=== PATIENT | male | born 1965 | race Caucasian/White ===

== ENCOUNTER 2024-12-19 21:56 | Inpatient (IN) | payer BC, SELFPAY ==
[2024-12-19] VITALS (7 sets, daily range): BP systolic 75–132; BP diastolic 46–87
--- NOTE | 2024-12-19 18:28 | ED.GENMED ---
History of Present Illness
General
Chief Complaint: Fainting/Passed Out
Source: patient and physician (Anesthesiology called from surgery center due to patient's heart rate being low after a vasovagal episode, urinary retention, unable to place catheter after left hip replacement surgery by Dr. Wong)
Exam Limitations: none
Time Seen by Provider: 12/19/24 18:22
Nursing documentation reviewed up to this point in time: agreed with
History of Present Illness
History of Present Illness:
59-year-old male with syncope episode, left total knee replacement, urinary retention.
Past History
Past History
ED Past Medical History: Hypercholesterolemia
ED Past Surgical History: Orthopedic (Left total hip replacement)
Social History
Tobacco: Non-smoker
Alcohol: None
Drug: None
Personal:
Living: with family
Review of Systems
Review of Systems
Allergies reviewed?: Yes
All Other Systems: Not applicable
Constitutional: Reports no symptoms
EENT: Reports no symptoms
Respiratory: Reports no symptoms
Cardiac: Reports syncope
ABD/GI: Reports no symptoms
: Reports difficulty voiding
Musculoskeletal: Reports no symptoms
Skin: Reports no symptoms
Neurological: Reports no symptoms
Endocrine: Reports no symptoms
Hematologic/Lymphatic: Reports no symptoms
Psychiatric: Reports no symptoms
Phy Exam
Physical Exam
Physical Exam:
Physical Exam
General: no apparent distress, not acutely ill
Neck: supple. no meningeal signs. normal posterior pharynx
Heart: s1/s2 regular rate and rhythm, no murmur. equal radial
pulses.
HEENT: Pupils equal round reactive to light, EOMI
Lungs: no acute respiratory distress. clear bilaterally
Abdomen: normal bowel sounds. not tender. no CVAT
Neuro: alert and oriented. no focal neurological deficits cranial nerves II through XII intact
Skin: no rash, dressing in place left hip
Psychiatric: well kept. interactive and cooperative
Extremities: no edema. no calf tenderness. negative homans. good distal pulses
Course
Orders/Labs/Results
Orders:
Orders
12/19/24 Breakfast
Regular
12/19/24 18:22
Bladder Scan- Treatment ONCE
EKG- Treatment ONCE
IV Insert/Care/Rem.- Treatment PRN
12/19/24 18:23
Electrocardiogram (*1) Urgent
12/19/24 18:51
Complete Blood Count/With Diff Urgent
Comprehensive Metabolic Panel Urgent
Magnesium Urgent
12/19/24 19:06
Cantu Placement- Treatment ONCE
Reason for insertion: Acute Retention
12/19/24 19:40
Calcium Gluconate 3,000 mg 0.9% Sodium Chloride 100 ml [Nss] 100 ml IV ONCE
Potassium Chloride 10% Elixir [KCl Elixir] 40 meq PO NOW STA
12/19/24 19:47
Add On- LAB Urgent
Tests Added?: magnesium, ionized calcium
12/19/24 20:06
Potassium Chloride [KCl] 40 meq 0.9% Sodium Chloride 250 ml [Nss] 250 ml IV NOW
12/19/24 20:23
Ionized Calcium Urgent
12/19/24 21:00
Calcium Gluconate 4,000 mg 0.9% Sodium Chloride 250 ml [Nss] 250 ml IV ONCE
12/19/24 21:24
Magnesium Sulfate 2 Gram/50 ml [Magnesium Sulfate] 2 gram in 50 ml IV NOW
12/19/24 21:46
Admit/Transfer Patient As Directed
Co-Sign Provider:
Level of Care: Inpatient admission
Assign to:: IMU- Intermediate Care
Physician / Group: Sidney
Diagnosis: Syncope, Hypokalemia, Hypocalcemia
Reason for Hospitalization: Syncope, Hypokalemia, Hypocalcemia
Expected length of stay greater than two midnights?: Yes
ELOS- Estimated Length of Stay in days: 2
I certify the patient meets the requirements for IP care: Yes
PRN Pain Medication Management As Directed
May give lesser potent ordered pain med per pt: Yes
preference::
Protocol:: Medication orders for pain may be administered in a
manner that supports deferring to patient preference
when the pt is:
- Requesting an ordered lesser potent pain medication.
Least to most potent pain medications are defined
as: acetaminophen < NSAID < tramadol < opioids
(morphine, oxycodone, hydromorphone).
- Requesting a lesser dose of the same medication IF
ORDERED.
- Requesting a less intrusive route of administration
if both routes are prescribed by the provider (PO <
IV).
12/19/24 21:48
Code Status As Directed
Resuscitation Status: Full Code
12/19/24 22:51
Acetaminophen [Tylenol] 1,000 mg PO TIDPRN PRN
Docusate Sodium [Colace] 100 mg PO BIDPRN PRN
Gabapentin [Neurontin] 300 mg PO HS
Lactated Ringers [Lr] 1,000 ml IV 125 mls/hr
Ondansetron Injectable [Zofran] 4 mg IV Q6HPRN PRN
Oxycodone [Roxicodone] 10 mg PO Q4HPRN PRN
Polyethylene Glycol Powder [Miralax] 17 grams PO DAILYPRN PRN
Tramadol HCl [Ultram] 50 mg PO Q6HPRN PRN
12/19/24 22:51
Activity As Directed
Activity Level: Ambulate
With Assistance
Bladder Scan As Directed
Follow Bladder Retention/Intermittent Cath Algorithm?: Yes
PRN if no void in __ hours: 6
Frequency: Per Retention Algorithm
If Bladder Scan Result >: 400
then:: Straight cath
EKG with chest pain [ECG as needed] As Directed
ECG as needed for:: Chest Pain
I/O [Intake/ Output] As Directed
Frequency: Per unit guidelines
Pneumatic Compression Sleeves As Directed
Type: Knee high
Straight Cath As Directed
Frequency: Per Retention Algorithm
Additional Instructions: straight cath as needed per acute urinary retention algorithm for 24 hrs
Additional Instructions: for bladder scan greater than 400 mL
Vital Signs As Directed
Frequency: Per unit guidelines
Oxygen Therapy [O2 Therapy] [RESP] Routine
Titrate/Wean O2 to maintain O2 sat greater than (%): 94
Ot Eval And Treat Routine
PT Consult [Pt Eval And Treat] Routine
Activity Level: Ambulate
With Assistance
DX Deep Vein Thrombosis Video Routine
12/20/24 06:00
EKG [Electrocardiogram (*1)] IN AM
Reason for Study: Chest Pain
Basic Metabolic Panel IN AM
Complete Blood Count/No Diff IN AM
Magnesium IN AM
Phosphorus IN AM
12/20/24 08:00
Aspirin Low Dose EC [Aspir Low (Enteric Coated)] 81 mg PO BID
Celecoxib [Celebrex] 200 mg PO BID
Ezetimibe [Zetia] 10 mg PO DAILY
12/21/24 11:00
DC Protocol for Telemetry ONCE
Abnormal Lab Results
12/19/24 12/19/24
18:51 20:23
WBC 11.8 H 10^3/uL
(4.8-10.8)
RBC 3.86 L 10^6/uL
(4.70-6.10)
Hgb 11.8 L g/dL
(13.0-18.0)
Hct 34.3 L %
(39.0-52.0)
Plt Count 109 L 10^3/uL
(130-400)
MPV 10.5 H fL
(7.4-10.4)
Abs Immat Gran (auto) 0.1 H 10^3/uL
(0-0.05)
Absolute Neuts (auto) 10.8 H 10^3/uL
(1.4-6.5)
Absolute Lymphs (auto) 0.5 L 10^3/uL
(1.2-3.4)
Neutrophils % 91.9 H %
(42.2-75.2)
Lymphocytes % 4.2 L %
(20.5-51.1)
Potassium 2.8 L mmol/L
(3.5-5.1)
Chloride 112 H mmol/L
(98-107)
Carbon Dioxide 19 L mmol/L
(22-30)
Creatinine 0.5 L mg/dL
(0.7-1.3)
Glucose 120 H mg/dl
(70-99)
Calcium 5.6 L* mg/dl
(8.4-10.2)
Ionized Calcium 1.00 L mMOL/L
(1.15-1.33)
Magnesium 1.0 L mg/dl
(1.6-2.3)
Total Protein 4.3 L g/dl
(6.3-8.2)
Albumin 2.4 L g/dl
(3.5-5.0)
12/19/24 18:51
12/19/24 18:51
Vital Signs
Initial and Last Documented VS:
Initial Vital Signs
Temp Pulse Resp BP Pulse Ox
98.4 F 54 18 131/87 98
12/19/24 18:23 12/19/24 18:23 12/19/24 18:23 12/19/24 18:23 12/19/24 18:23
Last Documented Vital Signs
Temp Pulse Resp BP Pulse Ox
98.4 F 97 15 132/68 92
12/19/24 18:23 12/19/24 22:15 12/19/24 22:15 12/19/24 22:15 12/19/24 22:15
MDM/Problems Addressed
Differential Diagnosis Includes:
Dysrhythmia, electrolyte disturbance, urinary retention
MDM/Problems Addressed:
59-year-old male with urinary, hypocalcemia, hypokalemia, syncope, status post left total hip replacement.
*Pulse Oximetry
Patient hypoxic: no
*EKG
Interpreted by ED Provider?: Yes
EKG Intrepretation Date: 12/19/24
EKG Intrepretation Time: 19:35
Interpretation: abnormal
Comparison EKG: no comparison EKG present
Heart Rate: 56
Rate: bradycardiac
Rhythm: sinus
[place]: normal axis
Interval: normal interval
QRS Pattern: normal QRS
Ischemia: no ischemia
*Drum Drier Interpretation
Rate: bradycardiac
Interpretation: abnormal
Heart Rate: 55
Rhythm: sinus
*Critical Care Note
Total Time (30-74mins, 75-104mins- exclusive of procedures): 30
comment:
Critical care statement: A total of 30 minutes of critical care time was provided for this patient. This includes management of unstable vital signs, evaluation of the patient at bedside, reviewing the patient's pertinent medical records, discussion
with consultants, review of old EKGs and review of pertinent medical records. This time with separate from time utilized to perform the aforementioned documented procedures
Patient Management
Social determinants of health affecting care: Living situation and Strong social support
Discussion with other providers: Hospitalist and Glue Line Operator ([place] text sent to Dr. Nitesh Wong advising of admission)
Escalation/DeEscalation of care consider admission/obs:
admit indicated
Update Note
Update Note:
Pt has episode of asystole, momentarily, likely a vagal episode. Currently stable, admit to IMU.
ED Attending Note
-
Portions of this chart may have been created with voice recognition software.� Occasional wrong word or��sound alike� substitutions may have occurred due to the inherent limitations of voice recognition software.
Discharge Plan
Departure
Patient Disposition: Admit
Date of Disposition: 12/19/24
Time of Disposition: 19:44
Admit to: Telemetry
Presentation/result/management discussed w/ accepting MD/DO: Hospitalist
Patient with high blood pressure during this ER visit?: Yes
Condition: Good
Discharge Problem:
Syncope, Acute hypokalemia, Hypocalcemia, Status post total hip replacement, left, Hypomagnesemia
Interventions
Interventions:
*Risk Screen - Suicide Last Done: 12/19/24 19:40
*General Assessment Last Done: 12/19/24 19:40
*Neglect/Abuse Screening Last Done: 12/19/24 19:40
ED- Fall Risk Assessment Last Done: 12/19/24 22:58
*ED COVID-19 Vaccine History Last Done: 12/19/24 22:58
*Nursing Disposition Last Done: 12/19/24 22:58
ED- Cardiac Assessment Last Done: 12/19/24 19:40
ED- Neurological Assessment Last Done: 12/19/24 19:40
Discharge Date and Time
Discharge Date/Time: 12/19/24 22:59
[2024-12-19 19:01] LABS: % Basophils 0.3 % (0-2); % Immature Granulocytes 0.5 % (0-0.5); % Lymphocytes 4.2 % (20.5-51.1); % Monocytes 3.1 % (1.7-9.3); % Neutrophils 91.9 % (42.2-75.2); Absolute Immature Granulocytes 0.1 10^3/uL (0-0.05); Absolute Lymphocytes 0.5 10^3/uL (1.2-3.4); Absolute Monocytes 0.4 10^3/uL (0.1-0.6); Absolute Neutrophils 10.8 10^3/uL (1.4-6.5); Hematocrit 34.3 % (39.0-52.0); Hemoglobin 11.8 g/dL (13.0-18.0); Mean Corp Hgb Conc. 34.4 g/dL (33.0-37.0); Mean Corpuscular Hgb 30.6 pg (27.0-31.0); Mean Corpuscular Volume 88.9 fL (80.0-94.0); Mean Platelet Volume 10.5 fL (7.4-10.4); Nucleated Red Blood Cells % 0 % (-); Platelet Count 109 10^3/uL (130-400); Red Blood Cell Count 3.86 10^6/uL (4.70-6.10); Red Cell Dist. Width 13.2 % (11.5-14.5); White Blood Cell Count 11.8 10^3/uL (4.8-10.8)
[2024-12-19 19:18] LABS: ALT (SGPT) 29 U/L (0-50); AST (SGOT) 31 U/L (17-59); Albumin 2.4 g/dl (3.5-5.0); Alkaline Phosphatase 40 U/L (38-126); Blood Urea Nitrogen 13 mg/dl (9-20); Calcium 5.6 mg/dl (8.4-10.2); Carbon Dioxide 19 mmol/L (22-30); Chloride 112 mmol/L (98-107); Glucose 120 mg/dl (70-99); Potassium 2.8 mmol/L (3.5-5.1); Sodium 137 mmol/L (135-145); Total Bilirubin 0.3 mg/dl (0.2-1.3); Total Protein 4.3 g/dl (6.3-8.2); eGFR > 60.00
[2024-12-19] MEDS: KCL 270 MEQ IV (20:24)
[2024-12-19] MEDS: KCL ELIXIR 40 MEQ PO (20:24)
[2024-12-19] MEDS: CALCIUM GLUCONATE 290 MG IV (20:48)
--- NOTE | 2024-12-19 21:51 | HPS.HSE ---
Family Physician
-
Family Physician: Shahzad Shukla
Chief Complaint
-
Syncope
History of Present Illness
Patient is a 59y M with PMH significant for DJD and dyslipidemia who presents to ED for evaluation of syncopal episode at surgical center. Patient presented for L AMERICO at [facility] today. During his pre-op assessment, he had a
brief syncopal episode while IV was being inserted. This is apparently quite typical for him and he has history of syncopal / vasovagal events with blood draws, needle sticks, etc for his entire life.
Surgery was uneventful and patient felt well post-op. He was up and ambulating with a walker. He ate a small snack and was feeling well. He was advised that he needed to urinate in order to be discharged.
Patient went into the bathroom and was straining to urinate when he became diaphoretic, lightheaded and passed out a second time.
He was sent to the ED for evaluation.
At present he is awake and alert and in no distress. He has no complaints other than L hip pain.
Medical History
Past Medical History
Past Medical History: Reports Other
Additional Past Medical History:
Dyslipidemia
Vasovagal Syncope
DJD
Past Surgical History: Reports Other
Additional Past Surgical History:
L AMERICO (12/19/24)
R AMERICO
Varicose Vein Stripping
Social History
Tobacco: Non-smoker
Alcohol: Occasional
Drug: None
Family History
Family History: Not pertinent
Allergies / Home Medications
Allergies reflects when Allergies were last updated in [employer].
Home Medications with original date entered in [employer]
Allergy/Medication List:
Allergies
Allergy/AdvReac Type Severity Reaction Status Date / Time
Penicillins Allergy Unknown Verified 12/19/24 18:39
Home Medications
acetaminophen 500 mg tablet (Tylenol Extra Strength) 1,000 mg PO TIDPRN PRN mild pains 12/19/24
aspirin 81 mg tablet,delayed release 81 mg PO BID 12/19/24
celecoxib 200 mg capsule 200 mg PO BID 12/19/24
docusate sodium 100 mg capsule (Colace) 100 mg PO BIDPRN PRN constipation 12/19/24
ezetimibe 10 mg tablet (Zetia) 10 mg PO DAILY 12/19/24
gabapentin 300 mg capsule 300 mg PO HS 12/19/24
tramadol 50 mg tablet 50 mg PO Q6HPRN PRN moderate pains 12/19/24
Review of Systems
-
History Source: Patient
A 12 point ROS was completed and negative except as noted: Yes
Constitutional: Reports Fatigue; Denies Fever or Chills
Respiratory: Denies Cough or Trouble Breathing
Cardiac: Reports Syncope; Denies Chest Pain or Palpitations
Abdomen/GI: Denies Abdominal Pain, Nausea, Vomiting or Diarrhea
: Denies Dysuria or Frequency
Musculoskeletal: Reports Joint Pain; Denies Edema
Neurological: Denies Dizzy or Headache
Psych: Denies Depression or Anxiety
Physical Exam
Vital Signs
Vital Signs
Temp Pulse Resp BP Pulse Ox
98.4 F 57 11 126/71 100
12/19/24 18:23 12/19/24 21:15 12/19/24 21:15 12/19/24 21:00 12/19/24 21:15
Physical Exam
General: Other (59y M in no acute distress.)
HEENT: Moist mucous membranes and PERRLA
Respiratory: Clear; No Wheezes, Rales or Rhonchi
Cardiac: S1/S2 and Regular Rhythm; No Murmur
GI: Soft, Non Tender, Non Distended and Normal Bowel Sounds
Musculoskeletal: No Clubbing, No Cyanosis, No Edema and Other (Occlusive dressing in place L anterior hip. No bleeding / strikethrough.)
Neuro: AO x 3 and Nonfocal/grossly intact
Laboratory Results
-
12/19/24 18:51
12/19/24 18:51
Laboratory Results
Total Bilirubin 0.3 mg/dl (0.2-1.3) 12/19/24 18:51
AST 31 U/L (17-59) 12/19/24 18:51
ALT 29 U/L (0-50) 12/19/24 18:51
Alkaline Phosphatase 40 U/L (38-126) 12/19/24 18:51
Impression/Plan
-
A/P: Patient is a 59y M with no significant PMH who presents to ED for evaluation of syncopal episode s/p L AMERICO today.
Syncope
- Admit for further evaluation and treatment.
- Very likely vasovagal episode given known history of vagal sensitivity and straining to urinate.
- Monitor on tele overnight.
- IVF replacement.
- PT / OT evals in the AM.
Hypokalemia
Hypomagnesemia
Hypocalcemia
- Unclear etiology of electrolyte abnormalities- ? related to anesthesia, etc.
- Replacement initiated in the ED.
- Continue IVFs overnight and repeat labs / lytes in the AM.
- Additional replacement if needed.
POD #0 s/p L AMERICO
- Continue routine post-op management.
- ASA and SCDs for DVT prophylaxis.
- Pain control regimen.
- PT / OT evaluations in the AM for post-op hip teaching.
- Follow-up with Dr. Wong / Cortes Patterson after discharge.
DVT Prophylaxis: SCDs / ASA
Code Status: Full
[2024-12-19] MEDS: MAGNESIUM SULFATE 50 IV (22:39)
[2024-12-19] MEDS: NEURONTIN 300 MG PO (23:13)
[2024-12-19] MEDS: LR 1000 IV (23:13)
--- NOTE | 2024-12-19 23:57 | PTCARENOTE ---
Patient transferred from ED to IMU via stretcher. Tranferred and admitted patient without any issue. Patient is Aox3 and NSR on monitor. Patient has a castillo in place draining yellow urine. Patient is post op left hip replacement but does not
complain of pain at this time. LR running at 125. Assessment and VS as documented. Call ascencio in reach.
[2024-12-20] VITALS (10 sets, daily range): BP systolic 90–125; BP diastolic 53–87; PULSE 60–61; BMI 29.2
[2024-12-20] MEDS: TYLENOL 1000 MG PO ×2 (02:00→13:11)
[2024-12-20 04:39] LABS: Hematocrit 35.5 % (39.0-52.0); Hemoglobin 12.2 g/dL (13.0-18.0); Mean Corp Hgb Conc. 34.4 g/dL (33.0-37.0); Mean Corpuscular Hgb 30.7 pg (27.0-31.0); Mean Corpuscular Volume 89.2 fL (80.0-94.0); Platelet Count 125 10^3/uL (130-400); Red Blood Cell Count 3.98 10^6/uL (4.70-6.10); Red Cell Dist. Width 13.2 % (11.5-14.5); White Blood Cell Count 10.9 10^3/uL (4.8-10.8)
[2024-12-20 05:13] LABS: Blood Urea Nitrogen 14 mg/dl (9-20); Calcium 9.3 mg/dl (8.4-10.2); Carbon Dioxide 29 mmol/L (22-30); Chloride 101 mmol/L (98-107); Estimated Creatinine Clearance 100 ml/min; Glucose 132 mg/dl (70-99); Magnesium 1.8 mg/dl (1.6-2.3); Phosphorus 4.1 mg/dl (2.5-4.5); Sodium 137 mmol/L (135-145); eGFR > 60.00
[2024-12-20] MEDS: ASPIR LOW (ENTERIC COATED) 81 MG PO (07:21)
[2024-12-20] MEDS: CELEBREX 200 MG PO (07:21)
[2024-12-20] MEDS: ZETIA 10 MG PO (07:21)
[2024-12-20] MEDS: LR 1000 IV (07:21)
--- NOTE | 2024-12-20 08:27 | CON.CAR ---
Addendum entered and electronically signed by Song Egan MD 12/20/24 10:31:
I saw and examined the patient.
The Sleeve Maker's note was reviewed and I agree with the note.
Comment: Briefly, 59-year-old man past medical history of vasovagal syncope who experienced two episodes of syncope around the time of elective hip replacement at the outpatient surgery center yesterday and was referred to [facility] emergency
department for further evaluation.
By his report, first episode of syncope occurred with IV placement prior to the surgery. He tells me he has a longstanding history of syncope with blood draws and IV insertion.
Subsequent episode occurred postop when he was attempting to urinate and had been experiencing urinary retention.
Additional syncopal episode occurred here in the [facility] emergency department. Tells me that his hand IV was burning while being infused with potassium prior to the episode. Telemetry reviewed which showed sinus slowing and sinus bradycardia
with heart rates in the 20s at the time of this episode. With these episodes he will have a reliable prodrome of lightheadedness and nausea which seems most consistent with vasovagal syncope.
Has been maintaining sinus rhythm on telemetry since the episode last evening. Physical exam is unremarkable.
Recommend checking transthoracic echocardiogram to confirm that he has a structurally normal heart.
Reviewed staying well-hydrated and getting into a seated or lying position when his prodromal symptoms come on
If he has no further episodes here we can arrange for outpatient follow-up in our office, they are interested in following with Dr. Burnette, and consider placement of outpatient monitor at that time.
Original Note:
Consultation
Consultation Request
Date/Time Consultation Requested: 12/19/24 at 2251
Date/Time Consultation Performed: 12/20/24 at 0828
Requesting Provider: Dr. Mckenzie
Performing Provider: Dr. Egan
Reason for Consultation: Syncope
Medical History
-
History of Present Illness:
Patient came to ER yesterday from an outpatient surgery center with recurrent syncope and cardiology is consulted for same. Patient had elective left AMERICO at an outpatient surgery center yesterday. Prior to surgery and during placement of IV
patient had syncope, but he says that this is quite common for him. Patient reports a longstanding history of vasovagal syncope including episodes as a child of cutting his finger and passing out. In the last 10 to 20 years he has been seen by
cardiology in [place] and had testing including stress test, echo and cardiac cath. Patient has not been seen by cardiology in years. For his left AMERICO yesterday again he had syncope with IV placement and then postop while getting ready to go
home he had to empty his bladder and while seated on the toilet he had pain and passed out. Patient was reportedly bradycardic with this and was sent to ER. Then while in ER he had an episode of pain followed by bradycardia with heart rate
in the 20s and recurrent syncope. He was given epi x 2 and recovered. Patient says prior to these episodes that his last episodes of syncope were during his right AMERICO 9 years ago. Currently feels well denies any CP, SOB or lightheadedness.
PMH:
h/o vasovagal syncope
Past Medical History
Past Medical History: Other (in HPI)
Past Surgical History: Orthopedic (left AMERICO 12/19/24)
Social History
Tobacco: Non-Smoker
Alcohol: Occasional
Drug: None
Personal: Single
Family History
Family History: CAD (father with CAD)
Allergies / Home Medications
Allergy/AdvReac Type Severity Reaction Status Date / Time
Penicillins Allergy Unknown Verified 12/19/24 18:39
�Medication �Instructions �Recorded �Confirmed �Type
acetaminophen 500 mg tablet 1,000 mg PO TIDPRN PRN mild pains 12/19/24 12/19/24 History
(Tylenol Extra Strength)
aspirin 81 mg tablet,delayed 81 mg PO BID Blood Clot 12/19/24 12/19/24 History
release Prevention/Tx
celecoxib 200 mg capsule 200 mg PO BID Pain 12/19/24 12/19/24 History
docusate sodium 100 mg capsule 100 mg PO BIDPRN PRN constipation 12/19/24 12/19/24 History
(Colace)
ezetimibe 10 mg tablet (Zetia) 10 mg PO DAILY High Cholesterol 12/19/24 12/19/24 History
gabapentin 300 mg capsule 300 mg PO HS Neurological Condition 12/19/24 12/19/24 History
tramadol 50 mg tablet 50 mg PO Q6HPRN PRN moderate pains 12/19/24 12/19/24 History
Review of Systems
-
History Source: Patient
All other systems: Negative unless noted
Physical Exam
Vital Signs
Temp Pulse Resp BP Pulse Ox
98.4 F 59 15 106/65 99
12/19/24 18:23 12/20/24 07:17 12/20/24 07:17 12/20/24 07:17 12/20/24 07:17
GEN: NAD. AAOx3
HEENT: EOMI, MMM, wearing glasses
LUNGS: RA. CTAB/L, no wheezes/rales
CV: SR on tele. Reg, S1/S2, no murmur
ABD: soft, BS+, NT, ND
EXT: No clubbing, cyanosis, lesions or edema B/L
NEURO: Gross non-focal
SKIN: No rash
Lab Results
12/20/24 03:52
12/20/24 03:52
Impression / Plan
-
PCP: Dr. Shukla
Cardiology: Dr. Juan Antonio Mares [phone]
Impression:
Admitted with recurrent syncope 12/19/24
s/p left AMERICO at [facility] Center 12/19/24
3 second pause in the setting of syncope 12/19/24 PM
h/o vasovagal syncope
Hypokalemia
Hypocalcemia
Hypomagnesemia
Echo 12/20/24: Study pending
Plan:
-Patient came to ER yesterday from an outpatient surgery center with recurrent syncope and cardiology is consulted for same. Patient had elective left AMERICO at an outpatient surgery center yesterday. Prior to surgery and during placement of IV
patient had syncope, but he says that this is quite common for him. Patient reports a longstanding history of vasovagal syncope including episodes as a child of cutting his finger and passing out. In the last 10 to 20 years he has been seen by
cardiology in [place] and had testing including stress test, echo and cardiac cath. Patient has not been seen by cardiology in years. For his left AMERICO yesterday again he had syncope with IV placement and then postop while getting ready to go
home he had to empty his bladder and while seated on the toilet he had pain and passed out. Patient was reportedly bradycardic with this and was sent to ER. Then while in ER he had an episode of pain followed by bradycardia with heart rate
in the 20s and recurrent syncope. He was given epi x 2 and recovered. Patient says prior to these episodes that his last episodes of syncope were during his right AMERICO 9 years ago. Currently feels well denies any CP, SOB or lightheadedness.
-ECG x 4 reviewed by me. ECG 12/11/2024 at 12/24/2001 looks like sinus bradycardia with a 3.08-second pause. Additional ECGs all appear to be NSR or sinus bradycardia.
-No recurrent syncope since ER last night. Tele reviewed by me and SR throughout without additional pause
-Check echo, ordered by me
-No recurrent talia
-Called patient's primary electrical subcontractor in [place] and requested records. Patient reports previous recommendations from electrical subcontractor were to avoid triggers such as pain or IV/phlebotomy
-Electrolytes have been supplemented
-No indication for PPM and recommendation would be for aggressive hydration, utilization of below the knee compression stockings and taking time with positional changes. It would also be important for this patient in particular to avoid his known
triggers including pain and IV placement/phlebotomy. He is already making efforts as an outpatient towards core muscle strength and building lower extremity lean muscle mass.
Update at 0903: Received reviewed and now summarizing records from primary electrical subcontractor.
Cardiac cath 08/24/2013: LAD 50% lesion with negative FFR, circumflex luminal irregularities, RCA 50% mid lesion with negative FFR, RPDA 50% mid lesion with negative FFR, ventriculogram EF greater than 50%
Cardiac cath 08/24/2019: LM no disease, LAD 50% mid lesion with negative FFR, circumflex luminal irregularities, RCA 50% mid lesion with negative FFR, 50% mid lesion in the RPDA that also had a negative FFR assessment, EF 60% by ventriculogram
Office visit 04/04/2019: No description of echo report, but patient noted to be taking Zetia 10 mg daily at that time which is on his current med list as well.
--- NOTE | 2024-12-20 13:33 | W.PN.HOSP.TC ---
Today's Communication/Plan
-
dc to home if successful void trial
outpatient PT/OT - ortho fu
OP cardiology f/u
Assessment / Plan
Assessment / Plan
Assessment:
Syncope
- vasovagal given known history of vagal sensitivity and straining to urinate.
- no events on tele, mild pauses not meeting criteria for pacing
- OP Cardiology f/u and heart monitor
Hypokalemia
Hypomagnesemia
Hypocalcemia
- Unclear etiology of electrolyte abnormalities- ? related to anesthesia, etc.
- BMP now stable after replacement/IVF
POD #1 s/p L AMERICO
- ASA and SCDs for DVT prophylaxis.
- Pain control regimen.
- outpatient PT/OT
- Follow-up with Dr. Wong / [facility] after discharge.
Urinary retention post-op
- remove Cantu for void trial
DVT Prophylaxis: SCDs / ASA
Code Status: Full
More than 30 minutes spent in discharge including
Final examination of the patient
Summarizing hospital stay
Instructions for continuing care to all relevant caregivers
Preparation of discharge records, prescriptions, and referral forms
Total time spent (in minutes):41
Anticipated Discharge: Today
Subjective/Interval History
-
Date of Service: December 20, 2024
no complaints
Objective Data
-
Labs:
Laboratory Results
12/20/24
03:52
WBC 10.9 H
Hgb 12.2 L
Hct 35.5 L
Plt Count 125 L
Sodium 137
Potassium 5.0 D
Chloride 101
Carbon Dioxide 29
BUN 14
Creatinine 0.8
Glucose 132 H
Calcium 9.3 D
Vital Signs:
Vital Signs
Temp Pulse Resp BP Pulse Ox
98.8 F 55 18 90/53 99
12/20/24 11:05 12/20/24 11:00 12/20/24 09:16 12/20/24 10:00 12/20/24 07:17
I&O
12/19/24 12/20/24 12/21/24
06:59 06:59 06:59
Output Total 1999 825 / 825
Balance -1999 -1999 -825 / -825
Physical Exam
-
General: No Apparent Distress
HEENT: Normocephalic and Atraumatic
Respiratory: Negative Wheezes
Cardiac: Regular Rhythm and S1/S2
GI: Soft and Nontender
Genito-urinary: No Costovertebral Tender
Musculoskeletal: No Edema
Neuro: AO x 3
Hematologic / Lymphatic: No Lymphadenopathy
Psych: Calm
Data Reviewed
-
Total Time Spent with Patient (in minutes): 41
Labs: Labs Reviewed by me
--- NOTE | 2024-12-20 13:42 | W.DS.TRANS ---
DC Summary - Power Lineworker
-
Discharge Instructions:
Discharge Diagnosis/Procedures vasovagal syncope
Diet Regular
Activity As tolerated
Bathing Restrictions None
Instructions:
Stand-Alone Forms:
Changes to Home Medications: No
Discharge Medications:
DC Medications w/original date entered in RE[facility]
acetaminophen 500 mg tablet (Tylenol Extra Strength) 1,000 mg PO TIDPRN PRN mild pains 12/19/24
aspirin 81 mg tablet,delayed release 81 mg PO BID Blood Clot Prevention/Tx 12/19/24
celecoxib 200 mg capsule 200 mg PO BID Pain 12/19/24
docusate sodium 100 mg capsule (Colace) 100 mg PO BIDPRN PRN constipation 12/19/24
ezetimibe 10 mg tablet (Zetia) 10 mg PO DAILY High Cholesterol 12/19/24
gabapentin 300 mg capsule 300 mg PO HS Neurological Condition 12/19/24
tramadol 50 mg tablet 50 mg PO Q6HPRN PRN moderate pains 12/19/24
Home Medication Changes
Pending Results: No
Total time spent discharging patient (in min): 41
--- NOTE | 2024-12-20 14:43 | PTCARENOTE ---
Assumed care of patient this morning. He is aaox3. On monitor, he is SB. He is on RA, lungs clear. Pt had Cantu catheter, removed 1350. Pt is DTV 1950. Pt to be discharged if he passes voiding trial. Left hip aqaucel dressing intact. Pt has had
minimal pain, rating 3/10, medicated with Tylenol, see MAR. Assessment, care and VS as charted.
--- NOTE | 2024-12-20 15:18 | CM ---
Patient who is s/p L AMERICO at [facility]. Left hip aqaucel dressing per nurse. PT recommends outpatient therapy. OT; cont. current PT program.
Spoke with patient's sister Stacy Garduno (cell [phone]) who states patient is very [place] and his hearing aides are at home;
the patient was residing with their mother in [place] and was her caregiver until recently when their mother .
He is now residing with Stacy and her 4 children in her 2 story house in [place] (no CARLOS, 2nd floor bedroom).
The patient has been independent in ADLs and ambulation.
He was given a 'Force Video Set' by [facility] for virtual PT, which he will resume at d/c.
DME - RW, SPC, shower chair, skip tracer, hearing aides
No prior VN
Prior acute rehab in [place], unspecified
PCP - [facility]
Pharmacy - [facility]
Stacy will provide transport home today.
Per Dr Mckenzie, dressings will be managed by Ortho Dr at [facility].
No CM d/c needs identified.
Plan home today.
[2024-12-20] MEDS: FLOMAX 0.4 MG PO (16:41)
== END 2024-12-20 17:09 | disposition home or self-care (01) | DRG 641 ==
LOC: IMU 21:56
PROVIDERS: ADMITTING PHYSICIAN Hospitalist; ATTENDING PHYSICIAN Internal Medicine; CONSULT PHYSICIAN Internal Medicine Cardiovascular Disease; EMERGENCY PHYSICIAN Emergency Medicine; FAMILY PHYSICIAN Family Medicine
DX: E87.6 Hypokalemia (principal); R55 Syncope and collapse; E83.42 Hypomagnesemia; E83.51 Hypocalcemia; E78.00 Pure hypercholesterolemia, unspecified; R33.8 Other retention of urine; Z82.49 Family history of ischemic heart disease and other diseases of the circulatory system; Z88.0 Allergy status to penicillin; Z79.899 Other long term (current) drug therapy; Z79.82 Long term (current) use of aspirin; Z96.643 Presence of artificial hip joint, bilateral
CPT/HCPCS: 80048; 80053; 82330; 83735; 84100; 85025; 85027; 93005; 93306; 96365; 96367; 97163; 97166; 97530; 97535; 99291